=== PATIENT | male | born 1960 | race Caucasian/White ===

== ENCOUNTER 2018-10-30 15:07 | Emergency (ER) | payer OTHER ==
[~2018-10-30] VITALS: Ht 177.8 cm; Wt 81.8 kg
[~2018-10-30 15:07] MED LIST: AMLO-511 PO; ASPI-556 PO; CARV25 PO; CLON-570 PO; LISI-662 PO; OMEP20 PO
[2018-10-30 15:44] LABS: GLUCOSE,POINT OF CARE 100 MG/DL (70-110)
[2018-10-30] MEDS ORDERED: IBUPROFEN 800 MG TABLET PO ONE (16:00)
[2018-10-30 17:10] VITALS: BP 159/92
== END 2018-10-30 17:15 | disposition home or self-care (01) ==
LOC: EMS 15:11
DX: S61.302A Unspecified open wound of right middle finger with damage to nail, initial encounter (principal); S61.304A Unspecified open wound of right ring finger with damage to nail, initial encounter; E11.9 Type 2 diabetes mellitus without complications; I10 Essential (primary) hypertension; Z79.899 Other long term (current) drug therapy; Z88.0 Allergy status to penicillin; W23.0XXA Caught, crushed, jammed, or pinched between moving objects, initial encounter; Y93.89 Activity, other specified; Y92.89 Other specified places as the place of occurrence of the external cause; Y99.8 Other external cause status

== ENCOUNTER 2021-01-13 14:09 | Emergency (ER) | payer OTHER ==
[~2021-01-13] VITALS: Ht 188 cm; Wt 80.5 kg
[~2021-01-13 14:09] MED LIST changes: +AMLO-257 PO; -AMLO-511 PO; -CLON-570 PO; +CLON0.1T2 PO; -LISI-662 PO; +LISI-894 PO
[2021-01-13] MEDS ORDERED: AMLO-258 PO (14:25)
[2021-01-13] MEDS ORDERED: METF-960 PO (14:25)
[2021-01-13] MEDS ORDERED: SITA50 PO (14:25)
[2021-01-13 14:31] LABS: GLUCOSE,POINT OF CARE 182 MG/DL (70-110)
[2021-01-13 15:53] VITALS: BP 154/89
[2021-01-13] MEDS ORDERED: DiphenhydrAMINE HCL 25 MG CAPSULE PO ONE (16:30)
== END 2021-01-13 17:04 | disposition home or self-care (01) ==
LOC: EMS 14:18
DX: L29.8 Other pruritus (principal); E11.9 Type 2 diabetes mellitus without complications; I10 Essential (primary) hypertension; Z79.84 Long term (current) use of oral hypoglycemic drugs; Z79.899 Other long term (current) drug therapy; Z88.0 Allergy status to penicillin
CPT/HCPCS: 82962; 99282